=== PATIENT | male | born 1990 | race African-American/Black ===

== ENCOUNTER 2018-10-19 14:36 | Emergency (ER) | payer SELFPAY ==
[~2018-10-19] VITALS: Ht 190.5 cm; Wt 74.8 kg
[2018-10-19] MEDS ORDERED: AMPH30CA3 PO (14:48)
--- NOTE | 2018-10-19 15:06 | NUR ---
PT WAS EVALUATED BY DR WOLFE. PT WAS D/C'd TO HOME. D/C INSTRUCTIONS GIVEN TO THE PT.
[2018-10-19 15:12] VITALS: BP 127/77
== END 2018-10-19 15:20 | disposition home or self-care (01) ==
LOC: ER 14:36
DX: K40.90 Unilateral inguinal hernia, without obstruction or gangrene, not specified as recurrent (principal); Z79.899 Other long term (current) drug therapy
CPT/HCPCS: A4663